=== PATIENT | female | born 1950 | race Caucasian/White ===

== ENCOUNTER → 2020-03-16 | Outpatient (CLI) | payer MEDICARE ==
[~2020-03-16] MED LIST: DIATRIZOATE MEGL/DIATRIZOA SOD 30 ML BTL PO ONE; IOPAMIDOL 370 MG/ML 200 ML INFUS..BTL INJ ONE; SODIUM CHLORIDE 0.9% 50ML 50 ML ONE
[2020-03-16 10:44] LABS: CREATININE, SERUM 1.15 mg/dL (0.57-1.11)
== END ==
LOC: CT 09:39
PROVIDERS: ATTEND Family Medicine
DX: R19.04 Left lower quadrant abdominal swelling, mass and lump (principal); K59.00 Constipation, unspecified; R11.11 Vomiting without nausea; D72.829 Elevated white blood cell count, unspecified; R93.5 Abnormal findings on diagnostic imaging of other abdominal regions, including retroperitoneum; R10.9 Unspecified abdominal pain
CPT/HCPCS: 36415; 74177; 82565; 84520; Q9967

== ENCOUNTER 2021-08-04 09:11 | Emergency (ER) | payer MEDICARE, OTHER ==
[~2021-08-04] VITALS: Ht 165.1 cm; Wt 98.9 kg
[2021-08-04] MEDS ORDERED: TETANUS/DIPHTHERIA TOX ADULT 0.5 ML SYR IM ONE (11:00)
== END 2021-08-04 11:20 | disposition home or self-care (01) ==
LOC: ER 09:30 → FSED 11:20
DX: S01.112A Laceration without foreign body of left eyelid and periocular area, initial encounter (principal); S52.132A Displaced fracture of neck of left radius, initial encounter for closed fracture; I10 Essential (primary) hypertension; W01.10XA Fall on same level from slipping, tripping and stumbling with subsequent striking against unspecified object, initial encounter; Y92.481 Parking lot as the place of occurrence of the external cause; Z88.6 Allergy status to analgesic agent
CPT/HCPCS: 70450; 72125; 99284

== ENCOUNTER 2023-04-22 20:32 | Emergency (ER) | payer MEDICARE ==
[~2023-04-22] VITALS: Ht 177.8 cm; Wt 81.6 kg
[2023-04-22 21:02] LABS: BASOPHILS # (AUTO) 0.1 (0.0-0.1); BASOPHILS % 0.7 % (0.0-1.0); EOSINOPHILS # (AUTO) 0.2 (0.0-0.4); EOSINOPHILS % 1.5 % (0.0-6.0); HEMATOCRIT 44.4 % (34.2-44.1); LYMPHOCYTES % 17.1 % (18.0-39.1); MEAN CORPUSCULAR HEMOGLOBIN 29.9 pg (28-32); MEAN CORPUSCULAR HGB CONC 31.5 g/dL (31-35); MEAN CORPUSCULAR VOLUME 94.9 fL (81-99); MONOCYTES # (AUTO) 0.8 (0.2-0.8); MONOCYTES % 6.4 % (4.4-11.3); NEUTROPHILS # (AUTO) 8.7 (2.1-6.9); NEUTROPHILS % 73.8 % (38.7-80.0); PLATELET COUNT 325 x10e3/uL (140-360); RED BLOOD COUNT 4.68 x10e6/uL (3.6-5.1); RED CELL DISTRIBUTION WIDTH 13.7 % (11.7-14.4); WHITE BLOOD COUNT 11.74 x10e3/uL (4.8-10.8)
[2023-04-22 21:08] LABS: BILIRUBIN,URINE SMALL (NEGATIVE); CLARITY,URINE SL CLOUDY (CLEAR); COLOR,URINE AMBER (YELLOW); GLUCOSE, URINE 1+ (NEGATIVE); KETONES,URINE 1+ (NEGATIVE); LEUKOCYTE ESTERASE ,URINE TRACE (NEGATIVE); NITRITE,URINE NEGATIVE (NEGATIVE); PH,URINE 7 (5 - 7); PROTEIN,URINE DIPSTICK >=300 (NEGATIVE); URINE UROBILINOGEN 1 mg/dL (0.2 - 1)
[2023-04-22 21:17] LABS: ALBUMIN 4.2 g/dL (3.5-5.0); ALBUMIN/GLOBULIN RATIO 1.1 (0.8-2.0); ANION GAP 15.2 mmol/L (8-16); BILIRUBIN,TOTAL 0.6 mg/dL (0.2-1.2); CALCIUM 10.3 mg/dL (8.4-10.2); CREATININE, SERUM 1.51 mg/dL (0.57-1.11); POTASSIUM 4.2 mmol/L (3.5-5.1); TOTAL PROTEIN 8.1 g/dL (6.5-8.1)
[2023-04-22 21:17] LABS: BACTERIA,URINE MODERATE /HPF; EPITHELIAL CELLS,URINE MODERATE /LPF; RBC,URINE 0-5 /HPF (0-5)
[2023-04-22] MEDS ORDERED: IOPAMIDOL 370 MG/ML 100 ML INFUS..BTL INJ ONE (21:29)
[2023-04-22 21:32] LABS: TROPONIN I 0.013 ng/mL (0-0.300)
[2023-04-22] MEDS: ONDANSETRON HCL INJ 2MG/ML 2ML 2 MG/ML VIAL IV STA (22:09)
[2023-04-22] MEDS: Morphine 4mg INJECTION 4 MG/ML INJ IV STA (22:09)
[2023-04-22] MEDS: SODIUM CHLORIDE 0.9% 1000ML 1,000 ML IV STA (22:09)
[2023-04-22] MEDS ORDERED: LOMOTIL TABLET1 EACH PO ×2 (23:21→23:22)
[2023-04-22] MEDS ORDERED: METRONIDAZOLE500 MG PO (23:21)
[2023-04-22] MEDS ORDERED: ONDANSETRON HCL 4 MG ORAL DISINTEGRATING TAB ONE (23:22)
[2023-04-22 23:35] VITALS: BP 140/76; PULSE 81; RESP 19; O2SAT 98
== END 2023-04-22 23:37 | disposition home or self-care (01) ==
LOC: ER 20:36
DX: R11.2 Nausea with vomiting, unspecified (principal); K52.9 Noninfective gastroenteritis and colitis, unspecified; I10 Essential (primary) hypertension; E78.5 Hyperlipidemia, unspecified; Z11.52 Encounter for screening for COVID-19
CPT/HCPCS: 36415; 74176; 80053; 81001; 82550; 83690; 84484; 85025; 93005; 99284; J2270; J2405; J7030; Q9967; U0002; Q0162